=== PATIENT | female | born 1950 | race Caucasian/White ===

== ENCOUNTER 2023-12-08 02:33 | Emergency (ER) | payer OTHER ==
[2023-12-08 02:41] VITALS: TEMP 97.9; BMI 25.3
[2023-12-08] MEDS ORDERED: ALBUTEROL SO4 2.5/IPRATROPIUM 0.5 INH SOL 3 ML VIAL.NEB. NEB ONE ×2 (02:53→02:58)
[2023-12-08] MEDS ORDERED: methylPREDNISolone NA SUCC 125 MG/2 ML VIAL ONE (02:59)
[2023-12-08] MEDS: methylPREDNISolone NA SUCC 125 MG/2 ML VIAL IVPB ONE (03:08)
[2023-12-08] MEDS: ALBUTEROL SO4 2.5/IPRATROPIUM 0.5 INH SOL 3 ML VIAL.NEB. NEB ONE (03:09)
[2023-12-08 03:17] LABS: HEMATOCRIT 36.7 % (32.4-45.2); HEMOGLOBIN 12.6 GM/dL (10.7-15.3); MCH 31.6 pg (25.7-33.7); MCHC 34.4 g/dl (32.0-36.0); MEAN PLT VOLUME 7.3 fl (7.5-11.1); PLATELET COUNT 249 10^3/uL (134-434); RBC 3.99 M/mm3 (3.60-5.2); RDW 13.6 % (11.6-15.6); WHITE BLOOD COUNT 9.4 K/mm3 (4.0-10.0)
[2023-12-08 03:22] LABS: INR 0.97 (0.83-1.09)
[2023-12-08 03:34] LABS: POTASSIUM 3.5 mmol/L (3.5-5.1)
[2023-12-08 03:36] LABS: ALBUMIN 3.2 g/dl (3.4-5.0); BLOOD UREA NITROGEN 14.1 mg/dL (7-18); CALCIUM 8.6 mg/dL (8.5-10.1)
[2023-12-08 03:39] LABS: CREATININE 0.7 mg/dL (0.55-1.3)
[2023-12-08 03:41] LABS: BILIRUBIN,TOTAL 0.3 mg/dL (0.2-1); TOT PROT 6.6 g/dl (6.4-8.2)
[2023-12-08 06:04] VITALS: BP 139/79; PULSE 86; RESP 17
== END 2023-12-08 06:05 | disposition home or self-care (01) ==
LOC: JER 02:33
PROC: 3E033GC Introduction of Other Therapeutic Substance into Peripheral Vein, Percutaneous Approach (ICD-10-PCS; principal; 2023-12-08)
PROC: 3E0F7GC Introduction of Other Therapeutic Substance into Respiratory Tract, Via Natural or Artificial Opening (ICD-10-PCS; 2023-12-08)
DX: R04.2 Hemoptysis (principal); R07.89 Other chest pain; R06.02 Shortness of breath
CPT/HCPCS: 36415; 71046-TC-FY; 80053; 85027; 85610; 85730; 94640; 96374; 99284-25